=== PATIENT | male | born 1940 | race Asian ===

== ENCOUNTER 2020-11-01 04:27 | Day surgery (SDC) | payer OTHER, MEDICARE ==
[2020-10-30 14:12] VITALS: BMI 23.9
[~2020-11-01 04:27] MED LIST: LIDOCAINE HCL 1%, 10 MG/ML (20ML VIAL) INF ONE
[2020-11-01] MEDS ORDERED: LIDOCAINE HCL 1%, 10 MG/ML (20ML VIAL) ONE (08:43)
[2020-11-01 08:58] LABS: HEMATOCRIT 37.1 % (35.4-49); MCHC 32.3 g/dl (32.0-35.9); MEAN CELL VOLUME 80.6 fl (80-96); MEAN PLT VOLUME 7.9 fl (7.5-11.1); PLATELET COUNT 229 K/MM3 (134-434); RBC 4.61 M/mm3 (4.00-5.60); RDW 17.7 % (11.9-15.9); WHITE BLOOD COUNT 7.6 K/mm3 (4.0-10.0)
[2020-11-01 09:05] LABS: INR 1.08 (0.83-1.09); PROTHROMBIN TIME (PATIENT) 13.2 SEC (9.7-13.0)
[2020-11-01 09:07] LABS: ACTIVATED PTT 29.3 SECONDS (25.2-36.5)
[2020-11-01 09:21] LABS: ALBUMIN 3.9 g/dl (3.4-5.0); CALCIUM 8.7 mg/dL (8.5-10.1)
[2020-11-01 09:24] LABS: CREATININE 1.2 mg/dL (0.55-1.3)
[2020-11-01 09:27] LABS: BILIRUBIN,TOTAL 0.7 mg/dL (0.2-1); TOT PROT 7.5 g/dl (6.4-8.2)
[2020-11-01] MEDS ORDERED: LIDOCAINE HCL/PF 2% SDV 5ML VIAL ONE (09:43)
[2020-11-01] MEDS ORDERED: DEXAMETHASONE SOD PHOSPHATE 4 MG/1 ML VIAL ONE (09:43)
[2020-11-01] MEDS ORDERED: fentaNYL CITRATE 250 MCG/5 ML VIAL ONE (09:44)
[2020-11-01] MEDS ORDERED: MIDAZOLAM HCL 2 MG/2 ML SINGLE DOSE VIAL ONE (09:44)
[2020-11-01] MEDS ORDERED: PROPOFOL 20 ML ONE (09:44)
[2020-11-01] MEDS ORDERED: ROCURONIUM BROMIDE 50 MG/5 ML SYRINGE ONE (09:44)
[2020-11-01] MEDS ORDERED: AZTREONAM 2 GM in DEXTROSE 5%-WATER 100 ML IVPB ONE (10:30)
[2020-11-01] MEDS ORDERED: CLINDAMYCIN 900 MG PREMIX BAG IVPB ONE (10:45)
[2020-11-01] MEDS ORDERED: CLINDAMYCIN PHOSPHATE 600 MG/4 ML VIAL ONE (10:49)
[2020-11-01] MEDS ORDERED: AZTREONAM 2 GM VIAL (RESTRICTED TO ID) IVPB ONE (10:50)
[2020-11-01] MEDS ORDERED: BUPIVACAINE HCL/PF 0.5% (5MG/ML) 10 ML VIAL IJ ONE ×2 (11:00→12:12)
[2020-11-01] MEDS ORDERED: EPHEDRINE SULFATE/0.9% NACL/PF 50 MG/10 ML SYRINGE NR ONE (11:12)
[2020-11-01] MEDS ORDERED: NEOSTIGMINE METHYLSULFATE 0.5 MG/ML - 10 ML MDV ONE (12:10)
[2020-11-01] MEDS ORDERED: GLYCOPYRROLATE 0.2 MG/1 ML VIAL ONE (12:10)
[2020-11-01] MEDS ORDERED: LIDOCAINE HCL 1%, 10 MG/ML (20ML VIAL) INF ONE (12:13)
[2020-11-01] MEDS ORDERED: ACETAMINOPHEN 1000 MG/100 ML VIAL (NON FORMULARY) IVPB ONE (12:43)
[2020-11-01] MEDS ORDERED: ONDANSETRON 4 MG/2 ML VIAL IVPUSH PRN (13:44)
[2020-11-01] MEDS ORDERED: oxyCODONE HCL 5 MG TABLET PO PRN (13:44)
[2020-11-01] MEDS ORDERED: LACTATED RINGERS SOLUTION 1,000 ML IV SCH (13:45)
[2020-11-01 18:52] VITALS: TEMP 97.2
[2020-11-01 18:58] VITALS: BP 152/82; PULSE 70
== END 2020-11-01 19:09 | disposition home or self-care (01) ==
LOC: JASU-SURG 04:27
PROVIDERS: ATTEND Surgery
PROC: 0FT44ZZ Resection of Gallbladder, Percutaneous Endoscopic Approach (ICD-10-PCS; principal; 2020-11-01 10:00)
PROC: 0JB70ZZ Excision of Back Subcutaneous Tissue and Fascia, Open Approach (ICD-10-PCS; 2020-11-01 10:00)
DX: K81.0 Acute cholecystitis (principal); D17.1 Benign lipomatous neoplasm of skin and subcutaneous tissue of trunk
CPT/HCPCS: 36415; 80053; 82962; 85027; 85610; 85730; 86850; 86900; 86901; 88304-TC; 94760; J0131